=== PATIENT | male | born 1955 | race Caucasian/White ===

== ENCOUNTER 2020-03-17 23:59 | Inpatient (IN) ==
[2020-03-18 02:53] LABS: Adenovirus Not Detected (Not Detect); Coronavirus 229E Not Detected (Not Detect); Coronavirus HKU1 Not Detected (Not Detect); Coronavirus NL63 Not Detected (Not Detect); Coronavirus OC43 Not Detected (Not Detect)
[2020-03-18 02:54] LABS: Bordetella Pertussis Not Detected (Not Detect); Chlamydophila pneumoniae Not Detected (Not Detect); Human Metapneumovirus Not Detected (Not Detect); Human Rhinovirus/Enterovirus Not Detected (Not Detect); Influenza A Subtype 2009 H1 Not Detected (Not Detect); Influenza B Not Detected (Not Detect); Mycoplasma pneumoniae Not Detected (Not Detect); Parainfluenza Virus 1 Not Detected (Not Detect); Parainfluenza Virus 2 Not Detected (Not Detect); Parainfluenza Virus 3 Not Detected (Not Detect); Parainfluenza Virus 4 Not Detected (Not Detect); Respiratory Syncytial Virus Not Detected (Not Detect); SARS-CoV-2 Not Detected (Not Detect)
[2020-03-18] MEDS ORDERED: Naloxone 0.4 MG/ML INJ IVP PRN (03:27)
[2020-03-18 04:12] LABS: Basophils % 0.2 %; Mean Corpuscular Volume 95.3 fL (83.0-100.0); White Blood Count 6.5 K/mcL (4.3-11.1)
[2020-03-18 04:13] LABS: Hematocrit 38.7 % (37.5-50.1); Hemoglobin 12.1 g/dL (12.9-16.9); Immature Granulocytes % 0.9 % (0-4); Immature Platelets 5.3 % (1.1-6.1); Lymphocytes # 0.3 K/mcL (0.6-4.6); Lymphocytes % 4.9 %; Mean Corpuscular HGB Conc 31.3 g/dL (31.6-35.5); Mean Corpuscular Hemoglobin 29.8 pg (28.0-33.3); Mean Platelet Volume 11.4 fL (9.4-12.4); Monocytes # 0.7 K/mcL (0.0-1.3); Neutrophils # 5.5 K/mcL (1.6-8.9); Red Blood Count 4.06 M/mcL (4.19-5.50); Red Cell Distribution Width 15.6 % (11.5-14.5)
[2020-03-18 04:16] LABS: INR 2.8
[2020-03-18] MEDS: Amiodarone Premix 360 MG/200 ML BAG IVC SCH ×2 (04:17→16:39)
[2020-03-18 04:21] LABS: Platelet Count 75 K/mcL (140-400)
[2020-03-18 04:34] LABS: Alanine Aminotransferase 229 Units/L (7-52); Albumin 3.5 g/dL (3.5-5.7); Albumin/Globulin Ratio 1.5 (1.1-2.2); Alkaline Phosphatase 215 Units/L (34-104); Aspartate Amino Transferase 156 Units/L (13-39); BUN/Creatinine Ratio 17 (6-26); Bilirubin,Total 7.3 mg/dL (0.3-1.0); Blood Urea Nitrogen 40 mg/dL (8-23); Calcium 8.3 mg/dL (8.6-10.3); Carbon Dioxide 24 mEq/L (23-29); Chloride 102 mEq/L (98-107); Globulin 2.4 g/dL (2.4-3.5); Glucose 176 mg/dL (70-105); Magnesium 1.8 mg/dL (1.6-2.6); Osmolality,Calculated 298 (280-300); Phosphorous 4.1 mg/dL (2.7-4.5); Potassium 4.2 mEq/L (3.5-5.1); Sodium 137 mEq/L (136-145); Total Protein 5.9 g/dL (6.4-8.9); Troponin I < 0.03 ng/mL (< 0.04); eGFR For African Americans 34 (> 60); eGFR For Non-African Americans 28 (> 60)
[2020-03-18] MEDS ORDERED: 0.9 % Sodium Chloride 500 ML IVC ONE (04:39)
[2020-03-18 05:05] LABS: Platelet Estimate Decreased (Normal)
[2020-03-18 05:22] LABS: Creatine Kinase 83 Units/L (30-223); Uric Acid 4.5 mg/dL (2.3-7.6)
[2020-03-18 05:36] LABS: Thyroid Stimulating Hormone 0.368 mcIU/mL (0.340-5.600)
[2020-03-18] MEDS: MetroNIDAZOLE 500 MG/100 ML 500 MG/100 ML BAG IVPB SCH ×4 (05:47→23:56)
[2020-03-18 06:00] LABS: Acetaminophen < 10 mcg/mL (10-20)
[2020-03-18] MEDS ORDERED: Vancomycin 1,500 MG/265 ML IV.SOLN IVPB SCH (06:00)
[2020-03-18] MEDS ORDERED: Dextrose Gel 15 GM/37.5 ML TUBE PO PRN ×2 (06:13)
[2020-03-18] MEDS ORDERED: *HR* Dextrose 50 % in Water (Vial) 50 ML VIAL IVP PRN (06:13)
[2020-03-18] MEDS ORDERED: D5% in Water 1,000 ML IVC PRN (06:13)
[2020-03-18 06:16] LABS: Lipase 1300 Units/L (11-82)
[2020-03-18] MEDS ORDERED: Ondansetron 4 MG/2 ML VIAL IVP PRN (06:29)
[2020-03-18] MEDS: Ringers Solution, Lactated 1,000 ML IVC SCH ×2 (07:00→16:40)
[2020-03-18 07:17] LABS: Hepatitis B Surface Antigen Nonreactive (Nonreactive)
[2020-03-18 07:19] LABS: Amorphous Sediment,Urine Few per hpf (None-Few); Bacteria,Urine Few per hpf (None-Few); Bilirubin,Urine Small (Negative); Blood,Urine Small (Negative); Clarity,Urine Turbid (Clear); Color,Urine Dark-Yellow (Yellow); Glucose,Urine (UA) Normal (Normal); Ketones,Urine Negative (Negative); Leukocyte Esterase,Urine Negative (Negative); Mucus,Urine Few per lpf (None-Few); Nitrite,Urine Negative (Negative); PH,Urine 5.5 pH Units (5.0-8.0); Protein,Urine 50 mg/dL (Neg-Trace); RBC,Urine 0-3 per hpf (0-3); Specific Gravity,Urine 1.018 (1.010-1.025)
[2020-03-18 07:26] LABS: Protein/Creatinine Ratio,Urine 0.82 mg/mg (0.00-0.20); Sodium, Urine 22.9 mEq/L
[2020-03-18 07:46] LABS: Hepatitis B Core IgM Nonreactive (Nonreactive); Hepatitis C Virus Antibody Nonreactive (Nonreactive)
[2020-03-18 07:48] LABS: Hepatitis A Antibody IgM Nonreactive (Nonreactive)
[2020-03-18] MEDS ORDERED: Cefepime HCl 2,000 MG in Water for inj. (sterile) 20 ML IVP SCH (08:00)
[2020-03-18] MEDS ORDERED: Amiodarone Premix 150 MG/100 ML BAG IVPB ONE (08:07)
[2020-03-18] MEDS ORDERED: Vancomycin 1,750 MG/517.5 ML IV.SOLN IVPB SCH (09:00)
[2020-03-18] MEDS: Cefepime HCl 2,000 MG in Water for inj. (sterile) 20 ML IVP SCH ×2 (09:08→20:58)
[2020-03-18 09:11] LABS: ABG Base Excess 1 mEq/L (-2 to 3); ABG HCO3 23 mEq/L (21-27); ABG Oxygen Saturation 95 % (95-98); ABG PCO2 28 mmHg (35-45); ABG PH 7.52 pH Units (7.32-7.45); ABG PO2 66 mmHg (85-104); ABG TCO2 24 mEq/L (20-26)
[2020-03-18] MEDS: *HR* Metoprolol 5 MG/5 ML VIAL IVP SCH ×4 (11:18→18:12)
[2020-03-18 11:29] LABS: Basophils % 0.2 %; Eosinophils % 0.2 %
[2020-03-18 11:31] LABS: Hematocrit 34.5 % (37.5-50.1); Immature Granulocytes % 3.3 % (0-4); Lymphocytes # 0.2 K/mcL (0.6-4.6); Lymphocytes % 4.2 %; Mean Corpuscular HGB Conc 31.9 g/dL (31.6-35.5); Mean Corpuscular Hemoglobin 29.9 pg (28.0-33.3); Mean Corpuscular Volume 93.8 fL (83.0-100.0); Mean Platelet Volume 11.8 fL (9.4-12.4); Monocytes # 0.4 K/mcL (0.0-1.3); Monocytes % 8.8 %; Red Blood Count 3.68 M/mcL (4.19-5.50); Red Cell Distribution Width 15.5 % (11.5-14.5); Segmented Neutrophils % 83.3 %; White Blood Count 4.8 K/mcL (4.3-11.1)
[2020-03-18 11:36] LABS: Platelet Count 70 K/mcL (140-400)
[2020-03-18 11:44] LABS: Bilirubin,Direct 3.9 mg/dL (0.0-0.2); Bilirubin,Indirect 2.2 mg/dL (0.0-1.0); Bilirubin,Total 6.1 mg/dL (0.3-1.0)
[2020-03-18 12:03] LABS: Anisocytosis 1+ (Not Present); Burr Cells 1+ (Not Present)
[2020-03-18 12:04] LABS: Platelet Estimate Decreased (Normal)
[2020-03-18] MEDS: Insulin LISPRO 300 UNITS/3 ML VIAL SQ SCH ×3 (12:10→23:59)
[2020-03-18 12:22] LABS: Albumin 3.2 g/dL (3.5-5.7); Albumin/Globulin Ratio 1.4 (1.1-2.2); Bilirubin,Direct 3.9 mg/dL (0.0-0.2); Bilirubin,Indirect 2.2 mg/dL (0.0-1.0); Bilirubin,Total 6.1 mg/dL (0.3-1.0); Calcium 7.8 mg/dL (8.6-10.3); Globulin 2.3 g/dL (2.4-3.5); Potassium 3.9 mEq/L (3.5-5.1); Total Protein 5.5 g/dL (6.4-8.9)
[2020-03-18 17:37] LABS: Calcium 7.9 mg/dL (8.6-10.3); Magnesium 2.4 mg/dL (1.6-2.6); Phosphorous 2.8 mg/dL (2.7-4.5)
[2020-03-18] MEDS: DilTIAZem 50 MG/50 ML IV.SOLN IVC SCH ×2 (17:39→21:41)
[2020-03-18 17:50] LABS: INR 1.9; Prothrombin Time 21.5 Seconds (9.4-12.1)
[2020-03-18] MEDS ORDERED: *HR* FentaNYL (PF) 100 MCG/2 ML VIAL IVP PRN (17:59)
[2020-03-18] MEDS ORDERED: *HR* Metoprolol 5 MG/5 ML VIAL IVP ONE (19:51)
[2020-03-18] MEDS: *HR* Metoprolol 5 MG/5 ML VIAL IVP ONE (20:05)
[2020-03-19] MEDS: *HR* Metoprolol 5 MG/5 ML VIAL IVP SCH ×5 (00:02→23:42)
[2020-03-19 04:11] LABS: Red Cell Distribution Width 15.8 % (11.5-14.5)
[2020-03-19 04:13] LABS: Basophils % 0.2 %; Eosinophils % 0.7 %; Hematocrit 34.7 % (37.5-50.1); Hemoglobin 11.1 g/dL (12.9-16.9); Immature Granulocytes % 0.5 % (0-4); Immature Platelets 5.3 % (1.1-6.1); Lymphocytes # 0.1 K/mcL (0.6-4.6); Lymphocytes % 2.4 %; Mean Corpuscular Hemoglobin 29.7 pg (28.0-33.3); Mean Corpuscular Volume 92.8 fL (83.0-100.0); Mean Platelet Volume 11.1 fL (9.4-12.4); Monocytes # 0.3 K/mcL (0.0-1.3); Monocytes % 6.6 %; Red Blood Count 3.74 M/mcL (4.19-5.50); Segmented Neutrophils % 89.6 %; White Blood Count 4.3 K/mcL (4.3-11.1)
[2020-03-19 04:17] LABS: Neutrophils # 3.9 K/mcL (1.6-8.9); Platelet Count 75 K/mcL (140-400)
[2020-03-19 04:34] LABS: Anisocytosis 1+ (Not Present); Platelet Estimate Decreased (Normal)
[2020-03-19 04:49] LABS: Albumin 3.3 g/dL (3.5-5.7); Albumin/Globulin Ratio 1.3 (1.1-2.2); Bilirubin,Total 4.1 mg/dL (0.3-1.0); Calcium 8.1 mg/dL (8.6-10.3); Globulin 2.5 g/dL (2.4-3.5); Potassium 4.1 mEq/L (3.5-5.1); Total Protein 5.8 g/dL (6.4-8.9)
[2020-03-19] MEDS: MetroNIDAZOLE 500 MG/100 ML 500 MG/100 ML BAG IVPB SCH ×3 (05:36→22:26)
[2020-03-19] MEDS: Insulin LISPRO 300 UNITS/3 ML VIAL SQ SCH ×6 (05:38→23:54)
[2020-03-19] MEDS: Amiodarone Premix 360 MG/200 ML BAG IVC SCH ×2 (06:39→16:51)
[2020-03-19] MEDS ORDERED: Vancomycin 1,500 MG/265 ML IV.SOLN IVPB SCH (09:00)
[2020-03-19] MEDS ORDERED: Lidocaine -MPF 1% 5 ML AMPUL INFILT ONE (09:00)
[2020-03-19] MEDS: Cefepime HCl 2,000 MG in Water for inj. (sterile) 20 ML IVP SCH ×2 (09:50→22:25)
[2020-03-19 09:51] LABS: Magnesium 2.3 mg/dL (1.6-2.6); Phosphorous 2.7 mg/dL (2.7-4.5)
[2020-03-19] MEDS ORDERED: D10% in Water 500 ML IVC PRN (10:45)
[2020-03-19] MEDS: IVABRADINE HCL 7.5 MG TABLET PO SCH ×2 (13:03→22:36)
[2020-03-19] MEDS: *HR* Metoprolol 5 MG/5 ML VIAL IVP ONE (14:22)
[2020-03-19] MEDS: *HR* Heparin 5,000 UNIT/ML VIAL SQ SCH ×2 (14:30→22:25)
[2020-03-19] MEDS ORDERED: Clinimix E 5%-15% SOLUTION 2,000 ML with MVI, adult with vitamin K 10 ML IVC SCH (17:00)
[2020-03-19] MEDS ORDERED: Haloperidol Lactate 5 MG/ML VIAL IM ONE (20:48)
[2020-03-19] MEDS: Dexmedetomidine HCl 400 MCG/100 ML MLS IVC SCH (21:13)
[2020-03-20] MEDS: Dexmedetomidine HCl 400 MCG/100 ML MLS IVC SCH ×4 (02:10→23:15)
[2020-03-20] MEDS: Insulin LISPRO 300 UNITS/3 ML VIAL SQ SCH ×7 (04:05→23:16)
[2020-03-20 04:21] LABS: Eosinophils % 0.6 %; Hemoglobin 11.1 g/dL (12.9-16.9); Immature Granulocytes % 0.3 % (0-4); Mean Corpuscular Hemoglobin 29.7 pg (28.0-33.3); Red Blood Count 3.74 M/mcL (4.19-5.50); Red Cell Distribution Width 15.9 % (11.5-14.5)
[2020-03-20 04:23] LABS: Hematocrit 34.6 % (37.5-50.1); Immature Platelets 5.6 % (1.1-6.1); Lymphocytes # 0.1 K/mcL (0.6-4.6); Mean Corpuscular HGB Conc 32.1 g/dL (31.6-35.5); Mean Corpuscular Volume 92.5 fL (83.0-100.0); Mean Platelet Volume 12.1 fL (9.4-12.4); Monocytes # 0.3 K/mcL (0.0-1.3); Monocytes % 7.7 %; Segmented Neutrophils % 88.4 %; White Blood Count 3.4 K/mcL (4.3-11.1)
[2020-03-20 04:25] LABS: Platelet Count 73 K/mcL (140-400)
[2020-03-20 04:30] LABS: INR 1.4; Prothrombin Time 15.7 Seconds (9.4-12.1)
[2020-03-20 04:34] LABS: VBG Ionized Calcium 1.07 mmol/L (1.15-1.35)
[2020-03-20 04:40] LABS: Chol/HDL Ratio 26.5 (0-4.9)
[2020-03-20 04:42] LABS: Albumin 3.1 g/dL (3.5-5.7); Albumin/Globulin Ratio 1.1 (1.1-2.2); Bilirubin,Direct 1.4 mg/dL (0.0-0.2); Bilirubin,Indirect 1.5 mg/dL (0.0-1.0); Bilirubin,Total 2.9 mg/dL (0.3-1.0); Calcium 8.4 mg/dL (8.6-10.3); Globulin 2.8 g/dL (2.4-3.5); Magnesium 2.5 mg/dL (1.6-2.6); Phosphorous 1.6 mg/dL (2.7-4.5); Total Protein 5.9 g/dL (6.4-8.9)
[2020-03-20 04:56] LABS: Albumin 3.3 g/dL (3.5-5.7); Albumin/Globulin Ratio 1.2 (1.1-2.2); Bilirubin,Total 2.7 mg/dL (0.3-1.0); Calcium 8.4 mg/dL (8.6-10.3); Globulin 2.7 g/dL (2.4-3.5)
[2020-03-20 05:43] LABS: Platelet Estimate Decreased (Normal)
[2020-03-20] MEDS: *HR* Metoprolol 5 MG/5 ML VIAL IVP SCH ×4 (06:13→23:17)
[2020-03-20] MEDS: *HR* Heparin 5,000 UNIT/ML VIAL SQ SCH ×3 (06:13→21:18)
[2020-03-20] MEDS: Cefepime HCl 2,000 MG in Water for inj. (sterile) 20 ML IVP SCH ×2 (07:37→21:18)
[2020-03-20] MEDS: Amiodarone Premix 360 MG/200 ML BAG IVC SCH ×2 (07:37→19:36)
[2020-03-20] MEDS: MetroNIDAZOLE 500 MG/100 ML 500 MG/100 ML BAG IVPB SCH ×3 (07:37→23:16)
[2020-03-20] MEDS ORDERED: Potassium Phosphate 44 MEQ in 0.9 % Sodium Chloride 250 ML IVPB ONE (08:25)
[2020-03-20] MEDS ORDERED: Vancomycin 1,500 MG/265 ML IV.SOLN IVPB SCH (12:00)
[2020-03-20] MEDS ORDERED: Vancomycin 2,000 MG/520 ML IV.SOLN IVPB SCH (12:00)
[2020-03-20] MEDS: IVABRADINE HCL 7.5 MG TABLET PO SCH ×2 (13:05→21:23)
[2020-03-20] MEDS ORDERED: Haloperidol Lactate 5 MG/ML VIAL IM ONE (15:54)
[2020-03-20] MEDS ORDERED: Haloperidol Lactate 5 MG/ML VIAL ONE (15:55)
[2020-03-20] MEDS ORDERED: Haloperidol Lactate 5 MG/ML VIAL IM PRN (16:03)
[2020-03-20] MEDS ORDERED: Clinimix E 5%-15% SOLUTION 2,000 ML with MVI, adult with vitamin K 10 ML IVC SCH (17:00)
[2020-03-21 03:42] LABS: Mean Corpuscular HGB Conc 31.9 g/dL (31.6-35.5); Mean Platelet Volume 11.6 fL (9.4-12.4)
[2020-03-21 03:44] LABS: Basophils % 0.2 %; Hematocrit 34.2 % (37.5-50.1); Hemoglobin 10.9 g/dL (12.9-16.9); Immature Granulocytes % 0.4 % (0-4); Immature Platelets 6.3 % (1.1-6.1); Lymphocytes # 0.3 K/mcL (0.6-4.6); Lymphocytes % 6.4 %; Mean Corpuscular Hemoglobin 29.5 pg (28.0-33.3); Mean Corpuscular Volume 92.4 fL (83.0-100.0); Monocytes # 0.5 K/mcL (0.0-1.3); Monocytes % 10.4 %; Neutrophils # 4.3 K/mcL (1.6-8.9); Platelet Count 74 K/mcL (140-400); Red Cell Distribution Width 16.4 % (11.5-14.5); Segmented Neutrophils % 82.6 %; White Blood Count 5.2 K/mcL (4.3-11.1)
[2020-03-21 03:54] LABS: INR 1.4; Prothrombin Time 16.3 Seconds (9.4-12.1)
[2020-03-21 03:58] LABS: Magnesium 2.3 mg/dL (1.6-2.6); Phosphorous 2.2 mg/dL (2.7-4.5)
[2020-03-21] MEDS: Insulin LISPRO 300 UNITS/3 ML VIAL SQ SCH ×6 (04:09→23:27)
[2020-03-21] MEDS: Dexmedetomidine HCl 400 MCG/100 ML MLS IVC SCH ×3 (04:49→17:36)
[2020-03-21 05:27] LABS: Albumin 3.1 g/dL (3.5-5.7); Albumin/Globulin Ratio 1.1 (1.1-2.2); Bilirubin,Total 2.4 mg/dL (0.3-1.0); Calcium 8.1 mg/dL (8.6-10.3); Globulin 2.9 g/dL (2.4-3.5); Potassium 4.2 mEq/L (3.5-5.1)
[2020-03-21] MEDS: *HR* Heparin 5,000 UNIT/ML VIAL SQ SCH ×2 (05:39→14:41)
[2020-03-21] MEDS: *HR* Metoprolol 5 MG/5 ML VIAL IVP SCH ×4 (05:40→23:30)
[2020-03-21] MEDS ORDERED: Furosemide 20 MG/2 ML VIAL IVP ONE (07:47)
[2020-03-21] MEDS: MetroNIDAZOLE 500 MG/100 ML 500 MG/100 ML BAG IVPB SCH ×3 (08:04→23:41)
[2020-03-21] MEDS: Amiodarone Premix 360 MG/200 ML BAG IVC SCH ×2 (08:07→19:30)
[2020-03-21] MEDS ORDERED: Perflutren Lipid Microsphere 1.3 ML in 0.9 % Sodium Chloride 8.7 ML IVP PRN (08:41)
[2020-03-21] MEDS: Cefepime HCl 2,000 MG in Water for inj. (sterile) 20 ML IVP SCH ×2 (09:04→22:08)
[2020-03-21] MEDS: IVABRADINE HCL 7.5 MG TABLET PO SCH ×2 (09:15→22:45)
[2020-03-21 10:45] LABS: AFP Tumor Marker Non-Pregnant 1 ng/mL (0-9); ANA IgG by ELISA NONE DETECTED (None Detected); F-Actin (sm muscle) Ab IgG 4 Units (0-19)
[2020-03-21] MEDS ORDERED: *HR* Heparin 5,000 UNIT/ML VIAL IVP PRN ×2 (15:07)
[2020-03-21] MEDS ORDERED: Heparin 25,000UNIT/250ML 1/2NS 25,000 UNIT/250 ML IV.SOLN IVC SCH (15:15)
[2020-03-21 16:40] LABS: Heparin anti-factor XA UFH 0.2 IU/mL (0.30-0.70)
[2020-03-21 16:41] LABS: INR 1.4; Prothrombin Time 16.5 Seconds (9.4-12.1)
[2020-03-21] MEDS ORDERED: Clinimix E 5%-15% SOLUTION 2,000 ML with MVI, adult with vitamin K 10 ML IVC SCH (17:00)
[2020-03-21 17:56] LABS: Hematocrit 34.4 % (37.5-50.1); Hemoglobin 10.9 g/dL (12.9-16.9); Mean Corpuscular HGB Conc 31.7 g/dL (31.6-35.5); Red Cell Distribution Width 16.5 % (11.5-14.5)
[2020-03-21 17:58] LABS: Immature Platelets 7.6 % (1.1-6.1); Mean Corpuscular Hemoglobin 29.6 pg (28.0-33.3); Mean Corpuscular Volume 93.5 fL (83.0-100.0); Mean Platelet Volume 11.3 fL (9.4-12.4); Red Blood Count 3.68 M/mcL (4.19-5.50); White Blood Count 4.9 K/mcL (4.3-11.1)
[2020-03-21] MEDS ORDERED: Insulin DETEMIR 100 UNIT/ML X5UNITS SQ SCH (21:00)
[2020-03-22] MEDS: Dexmedetomidine HCl 400 MCG/100 ML MLS IVC SCH ×3 (02:37→21:30)
[2020-03-22] MEDS: Insulin LISPRO 300 UNITS/3 ML VIAL SQ SCH ×6 (04:49→23:49)
[2020-03-22 04:51] LABS: Eosinophils % 0.7 %; Hemoglobin 11.1 g/dL (12.9-16.9)
[2020-03-22 04:52] LABS: INR 1.6; Prothrombin Time 18.6 Seconds (9.4-12.1)
[2020-03-22 04:53] LABS: Hematocrit 35.1 % (37.5-50.1); Immature Granulocytes % 0.7 % (0-4); Immature Platelets 7.7 % (1.1-6.1); Lymphocytes # 0.4 K/mcL (0.6-4.6); Lymphocytes % 7.5 %; Mean Corpuscular HGB Conc 31.6 g/dL (31.6-35.5); Mean Corpuscular Hemoglobin 29.6 pg (28.0-33.3); Mean Corpuscular Volume 93.6 fL (83.0-100.0); Mean Platelet Volume 11.8 fL (9.4-12.4); Monocytes # 0.7 K/mcL (0.0-1.3); Monocytes % 12.3 %; Red Blood Count 3.75 M/mcL (4.19-5.50); Red Cell Distribution Width 16.5 % (11.5-14.5); Segmented Neutrophils % 78.8 %; White Blood Count 5.4 K/mcL (4.3-11.1)
[2020-03-22 04:55] LABS: Neutrophils # 4.3 K/mcL (1.6-8.9); Platelet Count 94 K/mcL (140-400)
[2020-03-22 04:56] LABS: VBG Ionized Calcium 1.05 mmol/L (1.15-1.35)
[2020-03-22 05:11] LABS: BUN/Creatinine Ratio 34 (6-26); Blood Urea Nitrogen 44 mg/dL (8-23); Calcium 8.1 mg/dL (8.6-10.3); Carbon Dioxide 27 mEq/L (23-29); Chloride 110 mEq/L (98-107); Glucose 220 mg/dL (70-105); Magnesium 2.1 mg/dL (1.6-2.6); Osmolality,Calculated 316 (280-300); Phosphorous 2.8 mg/dL (2.7-4.5); Potassium 4.1 mEq/L (3.5-5.1); Sodium 144 mEq/L (136-145); eGFR For African Americans > 60 (> 60); eGFR For Non-African Americans 55 (> 60)
[2020-03-22] MEDS: *HR* Metoprolol 5 MG/5 ML VIAL IVP SCH ×4 (05:58→23:47)
[2020-03-22] MEDS: Amiodarone Premix 360 MG/200 ML BAG IVC SCH ×2 (08:00→19:50)
[2020-03-22] MEDS: MetroNIDAZOLE 500 MG/100 ML 500 MG/100 ML BAG IVPB SCH (08:54)
[2020-03-22] MEDS: Cefepime HCl 2,000 MG in Water for inj. (sterile) 20 ML IVP SCH (08:54)
[2020-03-22] MEDS: Calcium Gluconate 1gm/50mL 1 GM/50 ML BAG IVPB SCH ×2 (12:19→15:10)
[2020-03-22] MEDS: IVABRADINE HCL 7.5 MG TABLET PO SCH ×2 (12:19→21:12)
[2020-03-22] MEDS ORDERED: Clinimix E 5%-15% SOLUTION 2,000 ML with MVI, adult with vitamin K 10 ML IVC SCH (17:00)
[2020-03-22] MEDS: *HR* Heparin 5,000 UNIT/ML VIAL SQ SCH (18:32)
[2020-03-22] MEDS ORDERED: Furosemide 20 MG/2 ML VIAL IVP ONE (18:54)
[2020-03-22] MEDS ORDERED: cefTRIAXone 2,000 MG in 0.9 % Sodium Chloride Mini Bag 100 ML IVP SCH (21:00)
[2020-03-22] MEDS: Insulin DETEMIR 100 UNIT/ML X5UNITS SQ SCH (21:15)
[2020-03-23] MEDS: Insulin LISPRO 300 UNITS/3 ML VIAL SQ SCH ×4 (04:18→17:00)
[2020-03-23 04:58] LABS: Basophils % 0.2 %; Eosinophils # 0.1 K/mcL (0.0-0.6); Eosinophils % 1.7 %; Hematocrit 34.9 % (37.5-50.1); Hemoglobin 10.8 g/dL (12.9-16.9); Immature Granulocytes % 0.7 % (0-4); Lymphocytes # 0.5 K/mcL (0.6-4.6); Lymphocytes % 11.1 %; Mean Corpuscular HGB Conc 30.9 g/dL (31.6-35.5); Mean Corpuscular Hemoglobin 29.7 pg (28.0-33.3); Mean Corpuscular Volume 95.9 fL (83.0-100.0); Mean Platelet Volume 12.1 fL (9.4-12.4); Monocytes # 0.4 K/mcL (0.0-1.3); Monocytes % 10.6 %; Neutrophils # 3.1 K/mcL (1.6-8.9); Platelet Count 123 K/mcL (140-400); Red Blood Count 3.64 M/mcL (4.19-5.50); Red Cell Distribution Width 16.4 % (11.5-14.5); Segmented Neutrophils % 75.7 %; White Blood Count 4.1 K/mcL (4.3-11.1)
[2020-03-23 05:10] LABS: INR 1.6; Prothrombin Time 18.1 Seconds (9.4-12.1)
[2020-03-23 05:18] LABS: Magnesium 1.9 mg/dL (1.6-2.6); Phosphorous 2.8 mg/dL (2.7-4.5)
[2020-03-23 05:32] LABS: Alanine Aminotransferase 45 Units/L (7-52); Alkaline Phosphatase 141 Units/L (34-104); Amylase 162 Units/L (29-103); Aspartate Amino Transferase 39 Units/L (13-39); BUN/Creatinine Ratio 36 (6-26); Bilirubin,Total 1.7 mg/dL (0.3-1.0); Blood Urea Nitrogen 44 mg/dL (8-23); Calcium 8.4 mg/dL (8.6-10.3); Carbon Dioxide 27 mEq/L (23-29); Chloride 114 mEq/L (98-107); Globulin 2.9 g/dL (2.4-3.5); Glucose 207 mg/dL (70-105); Lipase 684 Units/L (11-82); Osmolality,Calculated 321 (280-300); Potassium 4.5 mEq/L (3.5-5.1); Sodium 147 mEq/L (136-145); Total Protein 5.9 g/dL (6.4-8.9); eGFR For African Americans > 60 (> 60); eGFR For Non-African Americans 60 (> 60)
[2020-03-23] MEDS: *HR* Heparin 5,000 UNIT/ML VIAL SQ SCH ×2 (05:38→16:28)
[2020-03-23] MEDS: *HR* Metoprolol 5 MG/5 ML VIAL IVP SCH (05:40)
[2020-03-23] MEDS: Dexmedetomidine HCl 400 MCG/100 ML MLS IVC SCH (05:44)
[2020-03-23 06:05] LABS: Platelet Estimate Decreased (Normal); Reactive Lymphocytes Present (Not Present)
[2020-03-23] MEDS: Insulin DETEMIR 100 UNIT/ML X5UNITS SQ SCH ×2 (07:55→21:10)
[2020-03-23] MEDS: IVABRADINE HCL 7.5 MG TABLET PO SCH (07:55)
[2020-03-23] MEDS: Amiodarone Premix 360 MG/200 ML BAG IVC SCH ×2 (08:15→23:12)
[2020-03-23] MEDS ORDERED: Furosemide 20 MG/2 ML VIAL IVP ONE (11:27)
[2020-03-23] MEDS ORDERED: D10% in Water 500 ML IVC PRN (11:43)
[2020-03-23] MEDS ORDERED: Naloxone 0.4 MG/ML INJ IVP PRN (11:43)
[2020-03-23] MEDS ORDERED: Ondansetron 4 MG/2 ML VIAL IVP PRN (11:43)
[2020-03-23] MEDS ORDERED: *HR* Dextrose 50 % in Water (Vial) 50 ML VIAL IVP PRN (11:43)
[2020-03-23] MEDS ORDERED: Clinimix E 5%-15% SOLUTION 2,000 ML with MVI, adult with vitamin K 10 ML IVC SCH (11:43)
[2020-03-23] MEDS ORDERED: Dextrose Gel 15 GM/37.5 ML TUBE PO PRN ×2 (11:43)
[2020-03-23] MEDS ORDERED: Haloperidol Lactate 5 MG/ML VIAL IM PRN (11:43)
[2020-03-23] MEDS ORDERED: D5% in Water 1,000 ML IVC PRN (11:43)
[2020-03-23] MEDS ORDERED: Dexmedetomidine HCl 400 MCG/100 ML MLS IVC SCH (11:43)
[2020-03-23] MEDS: *HR* Metoprolol 5 MG/5 ML VIAL IVP PRN ×2 (13:52→23:11)
[2020-03-23 16:43] LABS: Basophils % 0.4 %; Eosinophils # 0.1 K/mcL (0.0-0.6); Hematocrit 37.4 % (37.5-50.1); Hemoglobin 11.8 g/dL (12.9-16.9); Lymphocytes # 0.6 K/mcL (0.6-4.6); Lymphocytes % 10.1 %; Mean Corpuscular HGB Conc 31.6 g/dL (31.6-35.5); Mean Corpuscular Hemoglobin 29.9 pg (28.0-33.3); Mean Corpuscular Volume 94.7 fL (83.0-100.0); Mean Platelet Volume 12.2 fL (9.4-12.4); Monocytes # 0.6 K/mcL (0.0-1.3); Monocytes % 10.9 %; Neutrophils # 4.2 K/mcL (1.6-8.9); Platelet Count 164 K/mcL (140-400); Red Blood Count 3.95 M/mcL (4.19-5.50); Red Cell Distribution Width 16.3 % (11.5-14.5); Segmented Neutrophils % 74.6 %; White Blood Count 5.6 K/mcL (4.3-11.1)
[2020-03-23] MEDS ORDERED: MVI IVC SCH ×2 (17:00)
[2020-03-23] MEDS ORDERED: PARENTERAL AMINO ACID 10% IVC SCH ×2 (17:00)
[2020-03-23] MEDS ORDERED: CLINIMIX E IVC SCH ×2 (17:00)
[2020-03-23] MEDS ORDERED: [UNRECOGNIZED DRUG - OTHER] IVC SCH ×2 (17:00)
[2020-03-23 17:02] LABS: BUN/Creatinine Ratio 33 (6-26); Blood Urea Nitrogen 42 mg/dL (8-23); Calcium 8.5 mg/dL (8.6-10.3); Carbon Dioxide 27 mEq/L (23-29); Chloride 109 mEq/L (98-107); Glucose 322 mg/dL (70-105); Osmolality,Calculated 321 (280-300); Potassium 3.9 mEq/L (3.5-5.1); Sodium 144 mEq/L (136-145); eGFR For African Americans > 60 (> 60); eGFR For Non-African Americans 57 (> 60)
[2020-03-23] MEDS: cefTRIAXone 2,000 MG in 0.9 % Sodium Chloride Mini Bag 100 ML IVP SCH (21:11)
[2020-03-24] MEDS: Insulin LISPRO 300 UNITS/3 ML VIAL SQ SCH ×6 (00:37→20:07)
[2020-03-24 05:03] LABS: INR 1.5; Prothrombin Time 16.7 Seconds (9.4-12.1)
[2020-03-24 05:13] LABS: Magnesium 1.9 mg/dL (1.6-2.6); Phosphorous 2.7 mg/dL (2.7-4.5)
[2020-03-24] MEDS: *HR* Heparin 5,000 UNIT/ML VIAL SQ SCH ×2 (05:55→17:01)
[2020-03-24] MEDS: *HR* Metoprolol 5 MG/5 ML VIAL IVP PRN (06:23)
[2020-03-24] MEDS: Insulin DETEMIR 100 UNIT/ML X5UNITS SQ SCH ×2 (08:14→20:07)
[2020-03-24] MEDS: Amiodarone Premix 360 MG/200 ML BAG IVC SCH ×2 (10:19→23:11)
[2020-03-24 11:21] LABS: Eosinophils # 0.2 K/mcL (0.0-0.6); Hematocrit 38.9 % (37.5-50.1); Hemoglobin 12.1 g/dL (12.9-16.9); Mean Corpuscular HGB Conc 31.1 g/dL (31.6-35.5); Mean Corpuscular Volume 96.5 fL (83.0-100.0); Mean Platelet Volume 11.8 fL (9.4-12.4); Platelet Count 187 K/mcL (140-400); Red Blood Count 4.03 M/mcL (4.19-5.50); Red Cell Distribution Width 15.9 % (11.5-14.5); White Blood Count 4.6 K/mcL (4.3-11.1)
[2020-03-24 11:39] LABS: BUN/Creatinine Ratio 32 (6-26); Blood Urea Nitrogen 38 mg/dL (8-23); Calcium 8.3 mg/dL (8.6-10.3); Carbon Dioxide 27 mEq/L (23-29); Chloride 107 mEq/L (98-107); Glucose 346 mg/dL (70-105); Osmolality,Calculated 315 (280-300); Potassium 4.2 mEq/L (3.5-5.1); Sodium 141 mEq/L (136-145); eGFR For African Americans > 60 (> 60); eGFR For Non-African Americans > 60 (> 60)
[2020-03-24 11:42] LABS: Lymphocytes # 0.4 K/mcL (0.6-4.6); Monocytes # 0.2 K/mcL (0.0-1.3); Neutrophils # 3.8 K/mcL (1.6-8.9); Platelet Estimate Normal (Normal); Reactive Lymphocytes Present (Not Present)
[2020-03-24] MEDS: Ringers Solution, Lactated 1,000 ML IVC SCH (14:58)
[2020-03-24] MEDS: MetroNIDAZOLE 500 MG/100 ML 500 MG/100 ML BAG IVPB SCH (14:58)
[2020-03-24] MEDS ORDERED: Clinimix E 5%-15% SOLUTION 2,000 ML with MVI, adult with vitamin K 10 ML IVC SCH (15:00)
[2020-03-24] MEDS ORDERED: PARENTERAL AMINO ACID 10% IVC SCH ×2 (17:00)
[2020-03-24] MEDS ORDERED: CLINIMIX E IVC SCH ×2 (17:00)
[2020-03-24] MEDS ORDERED: MVI IVC SCH ×2 (17:00)
[2020-03-24] MEDS ORDERED: [UNRECOGNIZED DRUG - OTHER] IVC SCH ×2 (17:00)
[2020-03-24] MEDS: cefTRIAXone 2,000 MG in 0.9 % Sodium Chloride Mini Bag 100 ML IVP SCH (20:07)
[2020-03-25] MEDS: Insulin LISPRO 300 UNITS/3 ML VIAL SQ SCH ×6 (00:39→21:53)
[2020-03-25] MEDS: MetroNIDAZOLE 500 MG/100 ML 500 MG/100 ML BAG IVPB SCH ×3 (00:39→17:25)
[2020-03-25] MEDS: Ringers Solution, Lactated 1,000 ML IVC SCH ×2 (03:41→18:36)
[2020-03-25 05:07] LABS: INR 1.3; Prothrombin Time 14.8 Seconds (9.4-12.1)
[2020-03-25 05:09] LABS: Alanine Aminotransferase 41 Units/L (7-52); Albumin 2.9 g/dL (3.5-5.7); Albumin/Globulin Ratio 1.1 (1.1-2.2); Alkaline Phosphatase 149 Units/L (34-104); Amylase 125 Units/L (29-103); Aspartate Amino Transferase 36 Units/L (13-39); BUN/Creatinine Ratio 29 (6-26); Bilirubin,Total 1.1 mg/dL (0.3-1.0); Blood Urea Nitrogen 35 mg/dL (8-23); Carbon Dioxide 26 mEq/L (23-29); Chloride 108 mEq/L (98-107); Globulin 2.7 g/dL (2.4-3.5); Glucose 321 mg/dL (70-105); Lipase 321 Units/L (11-82); Magnesium 1.9 mg/dL (1.6-2.6); Osmolality,Calculated 310 (280-300); Phosphorous 2.8 mg/dL (2.7-4.5); Potassium 4.4 mEq/L (3.5-5.1); Sodium 140 mEq/L (136-145); Total Protein 5.6 g/dL (6.4-8.9); eGFR For African Americans > 60 (> 60); eGFR For Non-African Americans > 60 (> 60)
[2020-03-25 05:14] LABS: Basophils % 0.2 %; Eosinophils # 0.2 K/mcL (0.0-0.6); Eosinophils % 3.3 %; Hemoglobin 11.5 g/dL (12.9-16.9); Immature Granulocytes % 1.7 % (0-4); Lymphocytes # 0.7 K/mcL (0.6-4.6); Lymphocytes % 11.5 %; Mean Corpuscular HGB Conc 31.1 g/dL (31.6-35.5); Mean Corpuscular Hemoglobin 29.3 pg (28.0-33.3); Mean Corpuscular Volume 94.1 fL (83.0-100.0); Mean Platelet Volume 11.9 fL (9.4-12.4); Monocytes # 0.4 K/mcL (0.0-1.3); Monocytes % 6.6 %; Neutrophils # 4.4 K/mcL (1.6-8.9); Platelet Count 196 K/mcL (140-400); Red Blood Count 3.93 M/mcL (4.19-5.50); Red Cell Distribution Width 15.7 % (11.5-14.5); Segmented Neutrophils % 76.7 %; White Blood Count 5.7 K/mcL (4.3-11.1)
[2020-03-25] MEDS: *HR* Heparin 5,000 UNIT/ML VIAL SQ SCH (05:32)
[2020-03-25] MEDS: *HR* Metoprolol 5 MG/5 ML VIAL IVP PRN (09:18)
[2020-03-25] MEDS: Insulin DETEMIR 100 UNIT/ML X5UNITS SQ SCH ×2 (09:34→21:52)
[2020-03-25] MEDS ORDERED: *HR* Digoxin 0.5 MG/2 ML AMPUL IVP ONE (11:38)
[2020-03-25] MEDS: Amiodarone Premix 360 MG/200 ML BAG IVC SCH (13:30)
[2020-03-25] MEDS ORDERED: *HR* Heparin 5,000 UNIT/ML VIAL IVP PRN ×2 (16:44)
[2020-03-25] MEDS ORDERED: Clinimix E 5%-15% SOLUTION 2,000 ML with MVI, adult with vitamin K 10 ML IVC SCH (17:00)
[2020-03-25] MEDS: *HR* Digoxin 0.5 MG/2 ML AMPUL IVP SCH (18:00)
[2020-03-25 21:09] LABS: Hematocrit 38.1 % (37.5-50.1); Hemoglobin 11.6 g/dL (12.9-16.9); Mean Corpuscular HGB Conc 30.4 g/dL (31.6-35.5); Mean Corpuscular Hemoglobin 29.4 pg (28.0-33.3); Mean Corpuscular Volume 96.5 fL (83.0-100.0); Mean Platelet Volume 10.7 fL (9.4-12.4); Platelet Count 181 K/mcL (140-400); Red Blood Count 3.95 M/mcL (4.19-5.50); Red Cell Distribution Width 15.7 % (11.5-14.5); White Blood Count 6.4 K/mcL (4.3-11.1)
[2020-03-25] MEDS: cefTRIAXone 2,000 MG in 0.9 % Sodium Chloride Mini Bag 100 ML IVP SCH (21:51)
[2020-03-25] MEDS: Heparin 25,000UNIT/250ML 1/2NS 25,000 UNIT/250 ML IV.SOLN IVC SCH (21:54)
[2020-03-26] MEDS: *HR* Digoxin 0.5 MG/2 ML AMPUL IVP SCH (00:34)
[2020-03-26] MEDS: MetroNIDAZOLE 500 MG/100 ML 500 MG/100 ML BAG IVPB SCH ×3 (00:34→16:08)
[2020-03-26] MEDS: Insulin LISPRO 300 UNITS/3 ML VIAL SQ SCH ×6 (00:37→19:55)
[2020-03-26] MEDS: Amiodarone Premix 360 MG/200 ML BAG IVC SCH (02:10)
[2020-03-26 05:24] LABS: Hematocrit 36.4 % (37.5-50.1); Hemoglobin 11.3 g/dL (12.9-16.9); Mean Corpuscular Hemoglobin 29.2 pg (28.0-33.3); Mean Corpuscular Volume 94.1 fL (83.0-100.0); Mean Platelet Volume 11.6 fL (9.4-12.4); Platelet Count 213 K/mcL (140-400); Red Blood Count 3.87 M/mcL (4.19-5.50); Red Cell Distribution Width 15.5 % (11.5-14.5); White Blood Count 6.9 K/mcL (4.3-11.1)
[2020-03-26 05:33] LABS: INR 1.2; Prothrombin Time 13.9 Seconds (9.4-12.1)
[2020-03-26 05:45] LABS: BUN/Creatinine Ratio 28 (6-26); Blood Urea Nitrogen 31 mg/dL (8-23); Calcium 8.1 mg/dL (8.6-10.3); Carbon Dioxide 26 mEq/L (23-29); Chloride 108 mEq/L (98-107); Glucose 241 mg/dL (70-105); Magnesium 1.9 mg/dL (1.6-2.6); Osmolality,Calculated 304 (280-300); Phosphorous 2.6 mg/dL (2.7-4.5); Potassium 4.1 mEq/L (3.5-5.1); Sodium 140 mEq/L (136-145); eGFR For African Americans > 60 (> 60); eGFR For Non-African Americans > 60 (> 60)
[2020-03-26] MEDS: Ringers Solution, Lactated 1,000 ML IVC SCH ×2 (07:56→19:48)
[2020-03-26] MEDS: Insulin DETEMIR 100 UNIT/ML X5UNITS SQ SCH ×2 (09:25→22:00)
[2020-03-26] MEDS: Heparin 25,000UNIT/250ML 1/2NS 25,000 UNIT/250 ML IV.SOLN IVC SCH (14:53)
[2020-03-26] MEDS: cefTRIAXone 2,000 MG in 0.9 % Sodium Chloride Mini Bag 100 ML IVP SCH (19:52)
[2020-03-27] MEDS: MetroNIDAZOLE 500 MG/100 ML 500 MG/100 ML BAG IVPB SCH ×3 (00:34→16:42)
[2020-03-27 05:31] LABS: Basophils % 0.4 %; Eosinophils # 0.2 K/mcL (0.0-0.6); Eosinophils % 1.9 %; Hematocrit 39.4 % (37.5-50.1); Hemoglobin 12.3 g/dL (12.9-16.9); Immature Granulocytes % 2.2 % (0-4); Lymphocytes # 0.9 K/mcL (0.6-4.6); Lymphocytes % 10.2 %; Mean Corpuscular HGB Conc 31.2 g/dL (31.6-35.5); Mean Corpuscular Hemoglobin 29.3 pg (28.0-33.3); Mean Corpuscular Volume 93.8 fL (83.0-100.0); Mean Platelet Volume 11.3 fL (9.4-12.4); Monocytes # 0.5 K/mcL (0.0-1.3); Monocytes % 5.6 %; Neutrophils # 6.8 K/mcL (1.6-8.9); Platelet Count 221 K/mcL (140-400); Red Cell Distribution Width 15.4 % (11.5-14.5); Segmented Neutrophils % 79.7 %; White Blood Count 8.5 K/mcL (4.3-11.1)
[2020-03-27 05:49] LABS: BUN/Creatinine Ratio 21 (6-26); Blood Urea Nitrogen 24 mg/dL (8-23); Calcium 8.6 mg/dL (8.6-10.3); Carbon Dioxide 25 mEq/L (23-29); Chloride 109 mEq/L (98-107); Glucose 91 mg/dL (70-105); Osmolality,Calculated 298 (280-300); Potassium 4.2 mEq/L (3.5-5.1); Sodium 142 mEq/L (136-145); eGFR For African Americans > 60 (> 60); eGFR For Non-African Americans > 60 (> 60)
[2020-03-27] MEDS: Insulin LISPRO 300 UNITS/3 ML VIAL SQ SCH ×4 (07:59→20:29)
[2020-03-27] MEDS: Ringers Solution, Lactated 1,000 ML IVC SCH (08:03)
[2020-03-27] MEDS: *HR* Digoxin 0.125 MG TABLET PO SCH (08:04)
[2020-03-27] MEDS: Insulin DETEMIR 100 UNIT/ML X5UNITS SQ SCH ×2 (08:08→20:29)
[2020-03-27] MEDS ORDERED: Ringers Solution, Lactated 1,000 ML IVC SCH (12:53)
[2020-03-27] MEDS: Heparin 25,000UNIT/250ML 1/2NS 25,000 UNIT/250 ML IV.SOLN IVC SCH (13:09)
[2020-03-27] MEDS ORDERED: *HR* Warfarin 3 MG TABLET PO ONE (18:00)
[2020-03-27] MEDS ORDERED: Warfarin perPT PO PRN (18:00)
[2020-03-27] MEDS: cefTRIAXone 2,000 MG in 0.9 % Sodium Chloride Mini Bag 100 ML IVP SCH (20:28)
[2020-03-27] MEDS: Metoprolol XL (24 HR) Succ 50 MG TAB.ER.24H PO SCH (20:29)
[2020-03-28] MEDS: MetroNIDAZOLE 500 MG/100 ML 500 MG/100 ML BAG IVPB SCH ×2 (00:02→08:00)
[2020-03-28 05:46] LABS: Hematocrit 37.9 % (37.5-50.1); Hemoglobin 12.1 g/dL (12.9-16.9); Mean Corpuscular HGB Conc 31.9 g/dL (31.6-35.5); Mean Corpuscular Hemoglobin 29.7 pg (28.0-33.3); Mean Corpuscular Volume 93.1 fL (83.0-100.0); Mean Platelet Volume 11.5 fL (9.4-12.4); Platelet Count 234 K/mcL (140-400); Red Blood Count 4.07 M/mcL (4.19-5.50); Red Cell Distribution Width 15.3 % (11.5-14.5); White Blood Count 7.6 K/mcL (4.3-11.1)
[2020-03-28 06:01] LABS: BUN/Creatinine Ratio 18 (6-26); Blood Urea Nitrogen 22 mg/dL (8-23); Calcium 8.5 mg/dL (8.6-10.3); Carbon Dioxide 28 mEq/L (23-29); Chloride 109 mEq/L (98-107); Glucose 105 mg/dL (70-105); Osmolality,Calculated 298 (280-300); Potassium 4.3 mEq/L (3.5-5.1); Sodium 142 mEq/L (136-145); eGFR For African Americans > 60 (> 60); eGFR For Non-African Americans > 60 (> 60)
[2020-03-28 06:13] LABS: INR 1.3; Prothrombin Time 15.4 Seconds (9.4-12.1)
[2020-03-28] MEDS: Insulin LISPRO 300 UNITS/3 ML VIAL SQ SCH (07:56)
[2020-03-28] MEDS: Metoprolol XL (24 HR) Succ 50 MG TAB.ER.24H PO SCH (08:01)
[2020-03-28] MEDS: *HR* Digoxin 0.125 MG TABLET PO SCH (08:01)
[2020-03-28] MEDS: Insulin DETEMIR 100 UNIT/ML X5UNITS SQ SCH (08:05)
[2020-03-28] MEDS ORDERED: Metoprolol XL (24 HR) Succ 25 MG TAB.ER.24H PO ONE (11:00)
[2020-03-28] MEDS ORDERED: *HR* Enoxaparin 150 MG/ML SYRINGE SQ ONE (11:00)
[2020-03-28 11:08] VITALS: BP 151/110
[2020-03-28] MEDS ORDERED: *HR* Warfarin 4 MG TABLET PO ONE (18:00)
[2020-03-28] MEDS ORDERED: Metoprolol XL (24 HR) Succ 50 MG TAB.ER.24H PO SCH (21:00)
== END 2020-03-28 13:50 | disposition home or self-care (01) | DRG 871 ==
LOC: CDU → 2NNU 03-18 03:05 → ICNU 03-18 10:51 → SUATTDRO 03-19 09:34 → 2NNU 03-23 14:58
PROVIDERS: ADMIT Internal Medicine; ATTEND Internal Medicine
PROC: IRDRAIN (2020-03-18 19:00)

== ENCOUNTER 2021-10-17 18:26 | Observation (INO) ==
[2021-10-18] MEDS ORDERED: Ondansetron ODT 4 MG TAB.RAPDIS SL PRN (03:19)
[2021-10-18] MEDS ORDERED: Naloxone 0.4 MG/ML INJ IVP PRN (03:19)
[2021-10-18] MEDS ORDERED: Melatonin 3 MG TABLET PO PRN (03:19)
[2021-10-18 05:32] LABS: Basophils % 0.2 %; Eosinophils % 0.6 %; Hematocrit 35.4 % (37.5-50.1); Hemoglobin 11.9 g/dL (12.9-16.9); Immature Granulocytes % 0.3 % (0-4); Lymphocytes # 0.6 K/mcL (0.6-4.6); Lymphocytes % 8.7 %; Mean Corpuscular HGB Conc 33.6 g/dL (31.6-35.5); Mean Corpuscular Hemoglobin 30.7 pg (28.0-33.3); Mean Corpuscular Volume 91.5 fL (83.0-100.0); Mean Platelet Volume 10.8 fL (9.4-12.4); Monocytes # 0.6 K/mcL (0.0-1.3); Monocytes % 8.7 %; Neutrophils # 5.1 K/mcL (1.6-8.9); Platelet Count 100 K/mcL (140-400); Red Blood Count 3.87 M/mcL (4.19-5.50); Red Cell Distribution Width 14.4 % (11.5-14.5); Segmented Neutrophils % 81.5 %; White Blood Count 6.3 K/mcL (4.3-11.1)
[2021-10-18 05:41] LABS: INR 2.8; Prothrombin Time 30.6 Seconds (9.4-12.1)
[2021-10-18 06:56] LABS: Magnesium 1.8 mg/dL (1.6-2.6)
[2021-10-18 06:57] LABS: Albumin 3.7 g/dL (3.5-5.7); Albumin/Globulin Ratio 1.9 (1.1-2.2); Bilirubin,Total 1.1 mg/dL (0.3-1.0); Globulin 1.9 g/dL (2.4-3.5); Thyroid Stimulating Hormone 0.779 mcIU/mL (0.340-5.600); Total Protein 5.6 g/dL (6.4-8.9)
[2021-10-18] MEDS ORDERED: Dextrose 4 GM Chewable Tablets PO PRN ×2 (07:15)
[2021-10-18] MEDS ORDERED: D5% in Water 1,000 ML IVC PRN (07:15)
[2021-10-18] MEDS ORDERED: *HR* Dextrose 50 % in Water (Syg) 50 ML SYRINGE IVP PRN (07:15)
[2021-10-18 07:25] LABS: Phosphorous 2.1 mg/dL (2.7-4.5)
[2021-10-18] MEDS: Insulin LISPRO 300 UNITS/3 ML VIAL SUBQ SCH ×3 (08:56→16:45)
[2021-10-18 11:51] LABS: Bacteria,Urine Few per hpf (None-Few); Bilirubin,Urine Negative (Negative); Blood,Urine Small (Negative); Clarity,Urine Clear (Clear); Color,Urine Light-Yellow (Yellow); Glucose,Urine (UA) Normal (Normal); Ketones,Urine Negative (Negative); Leukocyte Esterase,Urine Small (Negative); Nitrite,Urine Negative (Negative); Protein,Urine 30 mg/dL (Neg-Trace); RBC,Urine 15-30 per hpf (0-3); Specific Gravity,Urine 1.016 (1.010-1.025); Urobilinogen,Urine Normal (Normal); WBC,Urine 15-30 per hpf (0-3)
[2021-10-18] MEDS ORDERED: *HR* Warfarin 4 MG TABLET PO ONE (18:00)
[2021-10-18] MEDS ORDERED: Warfarin perPT PO PRN (18:00)
[2021-10-18] MEDS ORDERED: Insulin DETEMIR 100 UNIT/ML X5UNITS SUBQ SCH (21:00)
[2021-10-18] MEDS ORDERED: traZODone 50 MG TABLET PO SCH (21:00)
[2021-10-18] MEDS ORDERED: Melatonin 3 MG TABLET PO SCH (21:00)
[2021-10-18] MEDS ORDERED: Insulin LISPRO 300 UNITS/3 ML VIAL SUBQ SCH (21:00)
[2021-10-18] MEDS: Gabapentin 300 MG CAPSULE PO SCH (21:37)
[2021-10-19 02:09] LABS: INR 1.8; Prothrombin Time 19.7 Seconds (9.4-12.1)
[2021-10-19] MEDS: Insulin LISPRO 300 UNITS/3 ML VIAL SUBQ SCH ×2 (07:26→10:50)
[2021-10-19] MEDS ORDERED: Metoprolol XL (24 HR) Succ 50 MG TAB.ER.24H PO SCH (09:00)
[2021-10-19] MEDS ORDERED: Aspirin Enteric Coated 81 MG Tablet PO SCH (09:00)
[2021-10-19] MEDS: Gabapentin 300 MG CAPSULE PO SCH (09:12)
[2021-10-19 10:24] VITALS: BP 151/84; PULSE 80; TEMP 98.1; O2SAT 95
[2021-10-19] MEDS ORDERED: *HR* Warfarin 4 MG TABLET PO ONE (18:00)
== END 2021-10-19 13:34 | disposition home or self-care (01) ==
LOC: 3BNU → SUATTDRO 10-18 02:30
PROVIDERS: ADMIT Pharmacist; ATTEND Internal Medicine